=== PATIENT | male | born 1995 | race Caucasian/White ===

== ENCOUNTER 2017-06-20 12:52 | Emergency (ER) | payer BC, MEDICAID ==
--- NOTE | 2017-06-20 14:06 | RADIOLOGY REPORT (SQ) ---
EXAM DESCRIPTION: ANKLE RIGHT COMPLETE COMPLETED DATE/TIME: 06/20/2017 1:54 pm REASON FOR STUDY: pain after trampoline COMPARISON: None. NUMBER OF VIEWS: Three views. TECHNIQUE: AP, lateral, and oblique radiographic images acquired of the right ankle. LIMITATIONS: Lateral film slightly rotated FINDINGS: MINERALIZATION: Normal. BONES: No acute fracture or dislocation. No worrisome bone lesions. JOINTS: Ankle mortise intact. There is a tibiotalar joint effusion SOFT TISSUES: Medial and lateral soft tissue swelling is present. No radiopaque foreign body OTHER: No other significant finding. IMPRESSION: Ankle joint effusion with diffuse soft tissue swelling. No acute displaced fracture. TECHNICAL DOCUMENTATION: JOB ID: [id number] [employer]- All Rights Reserved Reading location - IP/workstation name: [email or web address]
[2017-06-20] MEDS ORDERED: IBUPROFEN 600 MG TABLET PO ONE (14:35)
--- NOTE | 2017-06-20 14:40 | ER Document Report ---
ED Extremity Problem, Lower - General Chief Complaint: Ankle Injury Stated Complaint: RIGHT ANKLE INJURY Time Seen by Provider: 06/20/17 13:57 Mode of Arrival: Ambulatory Information source: Patient Notes: 21-year-old male presents to ED for complaint of pain to the right ankle for week. States he was jumping on trampoline with some younger people and injured his right ankle. He states he has been having trouble walking on this ankle. States been using Flakito wrap and a brace that he had for his knee and elevate and ice the ankle with no relief. He states his been using ibuprofen with no relief. TRAVEL OUTSIDE OF THE [place] IN LAST 30 DAYS: No - HPI Patient complains to provider of: Injury, Pain, Swelling Location: Ankle Occurred: Last week Where: Home, Outdoors Onset/Duration: Gradual, Worse Quality of pain: Achy, Throbbing Severity: Moderate Pain Level: 3 Context: Barefoot Recent injury: Possibly Associated symptoms: Painful ambulation Exacerbated by: Hanging down, Movement, Walking Relieved by: Elevation, Ice, Rest - Related Data Allergies/Adverse Reactions: No Known Allergies Allergy (Unverified 06/20/17 12:53) Past Medical History - General Information source: Patient - Social History Smoking Status: Never Smoker Cigarette use (# per day): No Chew tobacco use (# tins/day): No Smoking Education Provided: No Frequency of alcohol use: None Drug Abuse: None Lives with: Family Family History: Reviewed & Not Pertinent Patient has suicidal ideation: No Patient has homicidal ideation: No - Past Medical History Cardiac Medical History: Reports: None Pulmonary Medical History: Reports: None EENT Medical History: Reports: None Neurological Medical History: Reports: None Endocrine Medical History: Reports: None Renal/ Medical History: Reports: None Malignancy Medical History: Reports None GI Medical History: Reports: None Musculoskeltal Medical History: Reports Hx Musculoskeletal Trauma Skin Medical History: Reports None Psychiatric Medical History: Reports: Hx Depression, Hx Post Traumatic Stress Disorder Traumatic Medical History: Reports: None Infectious Medical History: Reports: None Surgical Hx: Negative Past Surgical History: Reports: None Review of Systems - Review of Systems Constitutional: No symptoms reported EENT: No symptoms reported Cardiovascular: No symptoms reported Respiratory: No symptoms reported Gastrointestinal: No symptoms reported Genitourinary: No symptoms reported Male Genitourinary: No symptoms reported Musculoskeletal: Ankle swelling - Pain and swelling Skin: No symptoms reported Hematologic/Lymphatic: No symptoms reported Neurological/Psychological: No symptoms reported -: Yes All other systems reviewed and negative Physical Exam - Vital signs Vitals: Temp Pulse Resp BP Pulse Ox 98.3 F 70 16 122/78 97 06/20/17 13:10 06/20/17 13:10 06/20/17 13:10 06/20/17 13:10 06/20/17 13:10 Interpretation: Normal - General General appearance: Appears well, Alert - HEENT Head: Normocephalic, Atraumatic Eyes: Normal Pupils: PERRL - Respiratory Respiratory status: No respiratory distress Chest status: Nontender Breath sounds: Normal Chest palpation: Normal - Cardiovascular Rhythm: Regular Heart sounds: Normal auscultation Murmur: No - Abdominal Inspection: Normal Distension: No distension Bowel sounds: Normal Tenderness: Nontender Organomegaly: No organomegaly - Back Back: Normal, Nontender - Extremities General upper extremity: Normal inspection, Nontender, Normal color, Normal ROM , Normal temperature General lower extremity: Normal temperature. No: Troy's sign Hip: Normal, Nontender Thigh: Normal, Nontender Knee: Normal, Nontender Ankle: Tender, Ecchymosis, Edema, Limited ROM - Due to pain, Unable to bear weight - Due to pain Foot: Normal, Nontender - Neurological Neuro grossly intact: Yes Cognition: Normal Orientation: AAOx4 Radha Coma Scale Eye Opening: Spontaneous [place] Coma Scale Verbal: Oriented Radha Coma Scale Motor: Obeys Commands Radha Coma Scale Total: 15 Speech: Normal Motor strength normal: LUE, RUE, LLE, RLE Sensory: Normal - Psychological Associated symptoms: Normal affect, Normal mood - Skin Skin Temperature: Warm Skin Moisture: Dry Skin Color: Normal Course - Re-evaluation Re-evalutation: 06/20/17 16:06 The patient is nontoxic appearing with stable vitals. They are afebrile. Ankle exam shows no deformities with no obvious ligament instability. There is a normal pulse and sensation distally. There is no redness or signs of infection. X-rays show no acute fracture per the radiologist. Patient will be placed in an Flakito wrap for comfort. Crutches will be offered and given if requested. Patient will be instructed to follow-up with not better in 1 week, sooner for increasing pain, fever, redness, numbness, tingling, weakness, any further concerns. Patient will be instructed to rest, ice, elevate their ankle. - Vital Signs Vital signs: Temp Pulse Resp BP Pulse Ox 98.0 F 57 L 16 127/63 H 97 06/20/17 14:51 06/20/17 14:51 06/20/17 13:10 06/20/17 14:51 06/20/17 14:51 - Diagnostic Test Radiology reviewed: Image reviewed, Reports reviewed Procedures - Immobilization Right Ankle Time completed: 14:45 Pre-Proc Neuro Vasc Exam: Normal Immobilizer type: Flakito wrap, Ankle stirrup Performed by: PCT Post-Proc Neuro Vasc Exam: Normal Alignment checked and good: Yes Discharge - Discharge Clinical Impression: Right ankle sprain Qualifiers: Encounter type: initial encounter Involved ligament of ankle: unspecified ligament Qualified Code(s): S93.401A - Sprain of unspecified ligament of right ankle, initial encounter Condition: Stable Disposition: HOME, SELF-CARE Instructions: Family Physicians / Practices Additional Instructions: SPRAINED ANKLE: Your sprained ankle results from stretching or tearing of the ligaments which support the ankle. This usually results from twisting the foot inward and under. The ligaments will require time and protection in order to heal properly. Many ankle sprains are quite disabling, and should be taken seriously. The usual treatment for an ankle sprain is cold packs; protection with tape , splints, or wraps; elevation; and staying off the ankle for at least a day. As the ankle improves, you can walk IF it's not painful to bear weight. Sports are best postponed until healing is complete. More serious sprains usually require strengthening exercises after early healing. Your physician has assessed the seriousness of the ligament injury to your ankle. However, the treatment may change, depending on how your ankle progresses. If further exams were recommended, it is important that you follow through. Call the doctor if your foot becomes numb, painful, or severely swollen. ANKLE STIRRUP SPLINT: You are to use an ankle brace called a stirrup splint. This type of brace allows you to place greater stresses on the ankle without risk of re-injury, and is often used for more severe ankle injuries such as avulsion fractures and ligament ruptures. The splint can be worn over a sock or tape. For proper support, wear the splint with a shoe over it. It's important that the splint fit properly. Adjust the heel tension, if needed. If your splint has air bladders, peel back the bottom of each air bladder, then move the Velcro attachment of the heel strap up or down. Air bladder pressure can be adjusted by pulling up the valve at the top, threading the air tube down into the main bladder, then blowing air into the bladder or squeezing it out. The two sides of the stirrup can be moved forward or back on your ankle by changing the attachment of the main straps. If you are unable to use the ankle comfortably in the splint, return for re -evaluation. FLAKITO WRAP: A compression dressing (flakito wrap) has been placed. This helps hold the area still. It limits swelling and internal bleeding. The wrap should be comfortably snug -- not tight. You should feel a sense of pressure, but not severe pain under the wrap. Unless the physician tells you otherwise, you can adjust the wrap for comfort. If the wrap causes symptoms suggesting it's too tight -- uncomfortable pressure, swelling or discoloration beyond the wrap, numbness, or severe pain - - you must loosen the wrap. If these symptoms don't resolve promptly, return for re-evaluation. USE OF CRUTCHES: The doctor has recommended that you not bear weight at this time. You will need to use crutches. Adjust the crutches so the tops come to about two inches under the armpit while you are standing upright. Use your hands -- not your armpits -- to support your weight. To get into a chair, support yourself with one crutch on the injured side. Hold the chair with the other hand, then lower yourself while putting all your weight on the good leg. Going up stairs is `good leg up, step up, then bring up crutches and bad leg.' Down stairs is `bad leg and crutches down, then bring good leg down.' If you develop numbness or swelling in an arm or hand, you are using the crutches incorrectly. Return if you are having any problems with the crutches. ICE & ELEVATION: Apply ice packs frequently against the painful area. Many different schedules are recommended, such as "20 minutes on, 20 minutes off" or "one hour ice, two hours rest." If you need to work, you may need to go longer between ice treatments. You should plan to have the area ice packed AT LEAST one- fourth of the time. The ice should be applied over the wrap, tape, or splint, or over a layer of cloth -- not directly against the skin. Some ice bags have a built-in cloth and can be put directly on the skin. Your injured part should be elevated as much as possible over the next 48 hours. Try to keep the injury above the level of the heart. Avoid use of the injured area. Elevation and rest will decrease the swelling. USE OF [id number] IBUPROFEN: Ibuprofen (Advil, Nuprin, Medipren, Motrin IB) is a medication for fever and pain control. In addition, it has anti- inflammatory effects which may be beneficial, especially in the treatment of injuries. It's best to take ibuprofen with food. Persons with ulcer disease or allergy to aspirin should notify their physician of this before taking ibuprofen. Ibuprofen can be given every four to six hours, for a total of four doses daily. Age Pain or fever dose Antiinflammatory dose 6-8 yr 200 mg (1 tab) 200 mg (1 tab) 9-11 yr 200 mg (1 tab) 200-400 mg (1-2 tab) 11-14 yr 200-400 mg (1-2 tab) 400 mg (2 tab) 15-adult 400 mg (2 tab) 600 mg (3 tab) FOLLOW-UP CARE: If you have been referred to a physician for follow-up care, call the physician s office for an appointment as you were instructed or within the next two days. If you experience worsening or a significant change in your symptoms, notify the physician immediately or return to the Emergency Department at any time for re-evaluation. Forms: Smoking Cessation Education Referrals: PAULETTE SHANKS, [ACTIVE STAFF] - Follow up as needed
[2017-06-20 14:52] VITALS: BP 127/63
== END 2017-06-20 15:33 | disposition home or self-care (01) ==
LOC: ER 12:52
DX: S93.401A Sprain of unspecified ligament of right ankle, initial encounter (principal); X50.0XXA Overexertion from strenuous movement or load, initial encounter; Y92.007 Garden or yard of unspecified non-institutional (private) residence as the place of occurrence of the external cause
CPT/HCPCS: 99283; 73610; L1902

== ENCOUNTER 2017-08-11 16:19 | Emergency (ER) | payer BC ==
[2017-08-11 16:39] VITALS: BP 134/60
--- NOTE | 2017-08-11 17:49 | ER Document Report ---
ED Psych Disorder / Suicide - General Chief Complaint: Psych Problem Stated Complaint: PSYCH EVAL Time Seen by Provider: 08/11/17 17:27 Mode of Arrival: Ambulatory Information source: Patient Notes: This is a 21-year-old man with a history of depression and PTSD who presents to the emergency room depressed, having cut his arm with scissors and knives last night. He has no history of cutting. He denies access to guns. He is referred to the ER by his counselor at the [facility] for psychiatric evaluation. The patient denies any suicidal ID patients at this time. He does feel safe to go home and he is accompanied by his significant other and she states she is comfortable bringing him home for outpatient evaluation tomorrow. Patient prefers not to stay the night for psychology evaluation in the morning. TRAVEL OUTSIDE OF THE [place] IN LAST 30 DAYS: No - HPI Patient complains to provider of: Self injury Onset: Other Onset was: Gradual - Last night Quality of pain: No pain Severity: None Pain Level: Denies Suicide Risk Factors: Depressed, Male Situational problems related to: denies: Daughter, Legal problems, Lost job, Parent, Recent , Recent divorce, School, Sexual orientation, Significant other, Son, Spouse, Work, Other Suicide Attempt Method: denies: Drowning, Hanging, Motor Vehicle, Overdose, Shooting, Stabbing/Cutting, Train, Other Overdose of: No: Acetominophen, Alcohol, Anticholinergic, Anti-depressants, Benzodiazepine, Salicylate, Tricyclic Antidepressant, Other Injury to: Upper extremity Normal mood: Yes Associated symptoms: Normal affect, Normal mood Similar symptoms previously: No Recently seen / treated by doctor: Yes - Related Data Allergies/Adverse Reactions: No Known Allergies Allergy (Verified 08/11/17 16:22) Past Medical History - General Information source: Patient - Social History Smoking Status: Never Smoker Cigarette use (# per day): No Chew tobacco use (# tins/day): No Frequency of alcohol use: Rare Drug Abuse: None Lives with: Spouse/Significant other Family History: Reviewed & Not Pertinent Patient has suicidal ideation: Yes Patient has homicidal ideation: No - Medical History Medical History: Negative Renal/ Medical History: Denies: Hx Peritoneal Dialysis Musculoskeltal Medical History: Reports Hx Musculoskeletal Trauma Psychiatric Medical History: Reports: Hx Depression, Hx Post Traumatic Stress Disorder Surgical Hx: Negative Review of Systems - Review of Systems Constitutional: denies: Chills, Fever EENT: No symptoms reported Cardiovascular: No symptoms reported Respiratory: No symptoms reported Gastrointestinal: No symptoms reported Genitourinary: No symptoms reported Male Genitourinary: No symptoms reported Musculoskeletal: No symptoms reported Skin: No symptoms reported Hematologic/Lymphatic: No symptoms reported Neurological/Psychological: See HPI Physical Exam - Vital signs Vitals: Temp Pulse Resp BP Pulse Ox 98.8 F 57 L 16 134/60 H 98 08/11/17 16:38 08/11/17 16:38 08/11/17 16:38 08/11/17 16:38 08/11/17 16:38 Notes: Physical exam: GENERAL: 21-year-old man, alert and oriented 3, no acute distress HEAD: Atraumatic, normocephalic. EYES: Pupils equal round and reactive to light, extraocular movements intact, sclera anicteric, conjunctiva are normal. ENT: TMs normal, nares patent, oropharynx clear without exudates. Moist mucous membranes. NECK: Normal range of motion, supple without obvious mass or JVD. LUNGS: Breath sounds clear to auscultation bilaterally and equal. No wheezes rales or rhonchi. HEART: Regular rate and rhythm without murmurs, rubs or gallops. ABDOMEN: Soft, normoactive bowel sounds. No tenderness to palpation. No guarding, no rebound. No masses appreciated. EXTREMITIES: Multiple superficial self-inflicted abrasions to the left upper extremity. None requiring sutures. All appear clean. Distal pulses good. NEUROLOGICAL: Cranial nerves II through XII grossly intact. Normal speech, moving all extremities. PSYCH: Patient denies any suicidal or homicidal ideations at this time. He states he feels safe going home today for evaluation tomorrow. SKIN: Warm, Dry, normal turgor, no rashes or lesions noted. Course - Re-evaluation Re-evalutation: 08/11/17 17:49 Last tetanus: One year ago - Vital Signs Vital signs: Temp Pulse Resp BP Pulse Ox 98.8 F 57 L 16 134/60 H 98 08/11/17 16:38 08/11/17 16:38 08/11/17 16:38 08/11/17 16:38 08/11/17 16:38 Discharge - Discharge Clinical Impression: Mood disorder NOS, Self-inflicted cutting Condition: Stable Disposition: HOME, SELF-CARE Additional Instructions: I would follow-up as planned tomorrow at [facility] with Dr. Velazquez. If you are unable to get in to see the counselor, and/or you feel unsafe or have any thoughts of wanting to hurt yourself or losing control, come right to the emergency room for evaluation. Continue with the Zoloft as prescribed previously.
[2017-08-11] MEDS ORDERED: SERTRALINE HCL 50 MG TABLET PO ONE (17:50)
== END 2017-08-11 18:26 | disposition home or self-care (01) ==
LOC: ER 16:19
DX: F39 Unspecified mood [affective] disorder (principal); S41.119A Laceration without foreign body of unspecified upper arm, initial encounter; X78.1XXA Intentional self-harm by knife, initial encounter
CPT/HCPCS: 36415; 99283

== ENCOUNTER 2017-08-12 11:02 | Emergency (ER) | payer BC ==
[2017-08-12 11:10] VITALS: BP 134/61
--- NOTE | 2017-08-12 11:41 | ER Document Report ---
ED Psych Disorder / Suicide - General Chief Complaint: Psych Problem Stated Complaint: DEPRESSED Time Seen by Provider: 08/12/17 11:23 Notes: 21-year-old male patient seen here yesterday for depression and self-harm. Was subsequently started on some new medication and discharge. Was scheduled to follow-up with psychiatry. Went there today but was unable to be seen so came here. Patient denies any suicidal ideation. States he feels a little bit better. 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 Denies any fever. No tachycardia. No other major symptoms at this time. TRAVEL OUTSIDE OF THE [place] IN LAST 30 DAYS: No - Related Data Allergies/Adverse Reactions: No Known Allergies Allergy (Verified 08/12/17 11:16) Past Medical History - General Information source: Patient - Social History Smoking Status: Never Smoker Chew tobacco use (# tins/day): No Frequency of alcohol use: None Drug Abuse: None Lives with: Spouse/Significant other Family History: Reviewed & Not Pertinent Patient has suicidal ideation: Yes Patient has homicidal ideation: No Renal/ Medical History: Denies: Hx Peritoneal Dialysis Musculoskeltal Medical History: Reports Hx Musculoskeletal Trauma Psychiatric Medical History: Reports: Hx Depression - anxiety cutter/SI, Hx Post Traumatic Stress Disorder Review of Systems - Review of Systems Constitutional: No symptoms reported EENT: No symptoms reported Cardiovascular: No symptoms reported Respiratory: No symptoms reported Gastrointestinal: No symptoms reported Genitourinary: No symptoms reported Male Genitourinary: No symptoms reported Musculoskeletal: No symptoms reported Skin: No symptoms reported Hematologic/Lymphatic: No symptoms reported Neurological/Psychological: No symptoms reported Physical Exam - Vital signs Vitals: Temp Pulse Resp BP Pulse Ox 99.1 F 69 14 134/61 H 98 08/12/17 11:09 08/12/17 11:09 08/12/17 11:09 08/12/17 11:09 08/12/17 11:09 Interpretation: Normal - Psychological Associated symptoms: Normal affect, Normal mood. No: Aggressive, Agitated, Anxious, Depressed, Uncooperative Course - Re-evaluation Re-evalutation: 08/12/17 12:00 At this time patient appears stable. Will have him visit with our mental health provider. Likely patient is stable for continued outpatient treatment at this time. Patient does not meet criteria for IVC. 08/12/17 12:21 At this time mental health provider has seen the patient. Patient is not in any acute distress. Will need to be seen by his providers for any types of duty restrictions etc. I can make recommendations but this is not in an official capacity of the [employer] . he has been advised that if things get worse he can always return. Will DC at this time in stable condition. - Vital Signs Vital signs: Temp Pulse Resp BP Pulse Ox 99.1 F 69 14 134/61 H 98 08/12/17 11:08/12/17 11:09 08/12/17 11:09 08/12/17 11:08/12/17 11:09 Discharge - Discharge Clinical Impression: Depression (emotion) Qualifiers: Depression Type: unspecified Qualified Code(s): F32.9 - Major depressive disorder, single episode, unspecified Disposition: HOME, SELF-CARE Instructions: Depression (OM) Additional Instructions: You have been started on some new medications. It would be advisable to peak with your command with the [employer] to make sure that it would be safe to exert yourself as this is a new medication and there could be some concern initially for overexertion. Please communicate this with your duty command so that they may discuss your status with the supervisory medical coding technician. Referrals: LEIDY NARANJO MD [NO LOCAL MD] - Follow up in 3-5 days
--- NOTE | 2017-08-13 12:07 | PSYCHOLOGICAL NOTE ---
Psych Note - Psych Note Psych Note: Reason for consult: patient's request Consent permissions: Patient's significant other and mother are in room per patient's request 21-year-old male patient seen here yesterday for depression and self-harm. Was subsequently started on some new medication and discharge. Was scheduled to follow-up with psychiatry. Went there today but was unable to be seen so came here. Patient denies any suicidal ideation. States he feels a little bit better. 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 Clinician observed patient sitting calmly with many superficial scratches running up and down his right arm. Patient disclosed that he did that 2 days ago. He denies history of cutting. Patient reports he used to take Zoloft however was switched to the generic which precipitated suicidal ideation in the cutting. Patient confirms he is back on Zoloft and no longer has these thoughts or urges. Patient disclosed he was originally asked to come to [facility] ED for an evaluation by the [employer] however when he came last night it was agreed that he would go to his outpatient mental health provider in the morning. Patient states that he was unable to see his provider today so came back to [facility] ED for further evaluation. Patient disclosed that originally he was sent to the [facility] however it is very far so came here instead. Patient reports that his outpatient mental health therapist is concerned about the stress going to drill causes him. Patient confirms he has been inpatient psychiatric treatment once (at an [facility] hospital) however denies any serious issues since that episode until the change of his medications. Pontine infarct further discussion it became clear patient was requesting an evaluation for "fit for duty." Clinician explained that this cannot be done by a provider not affiliated with the and advised the patient that he needed to either go to the [facility] or possibly the [facility] here in [place]. Patient is alert and orientated to person, place, time and circumstance. Mood is euthymic with congruent affect as evidenced by smiling and openly engaging with clinician. Patient reports episode of self-harm during a change of medications confirms no issues since reverting back to old medication. Patient denies current suicidal and homicidal ideation. Delusions are absent behaviors congruent with an intact reality based presentation i.e. organized and linear thought process. Eye contact is well-maintained. Conversational speech was within normal rate, tone and prosody. Flexion abilities appear to be within the average range. Attention and concentration are good. Insight, judgment, impulse control are good as evidenced by the patient attempting to receive help and continuing to look for assistance even when provider was unavailable today. No medication recommendations at this time V62.89 (Z65.8) other problem related to psychosocial circumstance; difficulty adjusting to Impression\\plan: Patient is cleared from acute psychiatric services. Patient does not meet IVC criteria per [place] GS 122C. Patient had a bout of suicidal ideation with cutting when going through medication change. Patient confirms symptoms have resolved since going back on his new medication. Patient, significant other, and mother all agree patient is not a danger to himself currently. Patient voices concern of upcoming drill. Patient was requesting a fit for duty; this is not something the clinician can provide for the patient. Patient was advised [place] or a mental health provider that is affiliated with the that can perform a fit for duty evaluation. Dr. Rhodes was consulted and the care management this patient; attending physician is agreement with recommendations and disposition.
== END 2017-08-12 12:26 | disposition home or self-care (01) ==
LOC: ER 11:02
DX: F32.9 Major depressive disorder, single episode, unspecified (principal)
CPT/HCPCS: 99284

== ENCOUNTER 2018-08-03 15:44 | Emergency (ER) | payer BC, OTHER ==
--- NOTE | 2018-08-03 16:46 | RADIOLOGY REPORT (SQ) ---
EXAM DESCRIPTION: CT HEAD WITHOUT COMPLETED DATE/TIME: 08/03/2018 4:35 pm REASON FOR STUDY: head trauma COMPARISON: None. TECHNIQUE: Axial images acquired through the brain without intravenous contrast. Images reviewed wi th bone, brain and subdural windows. Additional sagittal and coronal reconstructions were generated. Images stored on PACS. All CT scanners at this facility use dose modulation, iterative reconstruction, and/or weight based d osing when appropriate to reduce radiation dose to as low as reasonably achievable (ALARA). [facility]: Dose Right [facility]: CareDose [facility]: Dose Right [facility]: Teradose 4D [facility]: WHI Solution RADIATION DOSE: CT Rad equipment meets quality standard of care and radiation dose reduction techniq ues were employed. CTDIvol: 53.2 mGy. DLP: 964 mGy-cm. mGy. LIMITATIONS: None. FINDINGS: VENTRICLES: Normal size and contour. CEREBRUM: No masses. No hemorrhage. No midline shift. No evidence for acute infarction. Normal gra y/white matter differentiation. No areas of low density in the white matter. CEREBELLUM: No masses. No hemorrhage. No alteration of density. No evidence for acute infarction. EXTRAAXIAL SPACES: No fluid collections. No masses. ORBITS AND GLOBE: No intra- or extraconal masses. Normal contour of globe without masses. CALVARIUM: No fracture. PARANASAL SINUSES: No fluid or mucosal thickening. SOFT TISSUES: No mass or hematoma. OTHER: No other significant finding. IMPRESSION: NORMAL BRAIN CT WITHOUT CONTRAST. EVIDENCE OF ACUTE STROKE: NO. COMMENT: Quality ID # [id number]: Final reports with documentation of one or more dose reduction techniques (e.g., Automated exposure control, adjustment of the mA and/or kV according to patient size, use of iterative reconstruction technique) TECHNICAL DOCUMENTATION: JOB ID: [id number] [employer]- All Rights Reserved Reading location - IP/workstation name: [email or web address]
[2018-08-03 17:06] LABS: ABSOLUTE EOSINOPHILS # (AUTO) 0.1 10^3/uL (0.0-0.6); ABSOLUTE LYMPHOCYTES (AUTO) 1.6 10^3/uL (0.5-4.7); ABSOLUTE MONOCYTES (AUTO) 0.8 10^3/uL (0.1-1.4); BASOPHILS % (AUTO) 0.6 % (0-2); EOSINOPHILS % (AUTO) 0.8 % (0-6); HEMATOCRIT 44.8 % (37.9-51.0); HEMOGLOBIN 15.3 g/dL (13.5-17.0); LYMPHOCYTES % (AUTO) 24.6 % (13-45); MEAN CORPUSCULAR HEMOGLOBIN 27.8 pg (27.0-33.4); MEAN CORPUSCULAR HGB CONC 34.1 g/dL (32.0-36.0); MEAN CORPUSCULAR VOLUME 81 fl (80-97); MONOCYTES % (AUTO) 12.7 % (3-13); PLATELET COUNT 352 10^3/uL (150-450); RED CELL DISTRIBUTION WIDTH 12.7 % (11.5-14.0); SEGMENTED NEUTROPHILS % (AUTO) 61.3 % (42-78); TOTAL CELLS COUNTED % (AUTO) 100 %; WHITE BLOOD COUNT 6.6 10^3/uL (4.0-10.5)
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
[2018-08-03 17:25] LABS: ALANINE AMINOTRANSFERASE 32 U/L (21-72); ALBUMIN 4.6 g/dL (3.5-5.0); ANION GAP 12 (5-19); ASPARTATE AMINO TRANSFERASE 45 U/L (17-59); BILIRUBIN,DIRECT 0.4 mg/dL (0.0-0.4); BILIRUBIN,TOTAL 1.3 mg/dL (0.2-1.3); BLOOD UREA NITROGEN 8 mg/dL (7-20); CALCIUM 9.5 mg/dL (8.4-10.2); CARBON DIOXIDE 25 mmol/L (22-30); CHLORIDE 104 mmol/L (98-107); GLUCOSE 86 mg/dL (75-110); NEONATAL BILIRUBIN RESULT 0.9 mg/dL (0.1-1.1); POTASSIUM 4.2 mmol/L (3.6-5.0); SODIUM 141.1 mmol/L (137-145); TOTAL PROTEIN 7.4 g/dL (6.3-8.2)
[2018-08-03 17:26] LABS: ALKALINE PHOSPHATASE 56 U/L (38-126)
[2018-08-03 17:27] LABS: ACETAMINOPHEN < 10 ug/mL (10-30); ALCOHOL < 10 mg/dL (NONE DETECTED); SALICYLATE < 1.0 mg/dL (2.0-20.0)
--- NOTE | 2018-08-03 19:46 | EKG REPORT ---
SEVERITY:- NORMAL ECG - SINUS RHYTHM : Confirmed by: Elena Castano MD 03-Aug-2018 19:45:40
[2018-08-04 07:51] LABS: AMORPHOUS SEDIMENT,URINE TRACE /HPF; APPEARANCE,URINE SLIGHTLY-CLOUDY; BILIRUBIN,URINE NEGATIVE (NEGATIVE); COLOR,URINE YELLOW; GLUCOSE, URINE NEGATIVE (NEGATIVE); KETONES,URINE NEGATIVE (NEGATIVE); LEUKOCYTE ESTERASE,URINE NEGATIVE (NEGATIVE); NITRITE,URINE NEGATIVE (NEGATIVE); PROTEIN,URINE NEGATIVE (NEGATIVE); URINE SPECIFIC GRAVITY 1.024; UROBILINOGEN,URINE NEGATIVE mg/dL (<2.0)
[2018-08-04 08:03] LABS: URINE AMPHETAMINES SCREEN NEGATIVE; URINE BARBITURATES SCREEN NEGATIVE; URINE BENZODIAZEPINES SCREEN UNCONFIRMED POSITIVE; URINE COCAINE SCREEN NEGATIVE; URINE MARIJUANA (THC) SCREEN NEGATIVE; URINE METHADONE SCREEN NEGATIVE; URINE PHENCYCLIDINE SCREEN NEGATIVE
--- NOTE | 2018-08-04 10:45 | ER Document Report ---
Doctor's Note Notes: 08/04/18 10:37 Rounds: Chart reviewed and patient interviewed. Patient is being evaluated for anxiety, PTSD, depression, and suicidal ideation. Vital signs are all essentially normal. Lab studies were normal except for positive benzos on drug screen. Patient appears to be medically stable for transfer or discharge. Harini Myrick MD
[2018-08-04 12:33] VITALS: BP 125/67
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
== END 2018-08-04 12:47 | disposition home or self-care (01) ==
LOC: ER 15:44
DX: F41.9 Anxiety disorder, unspecified (principal); F43.10 Post-traumatic stress disorder, unspecified; S00.83XA Contusion of other part of head, initial encounter; W22.09XA Striking against other stationary object, initial encounter
CPT/HCPCS: 36415; 70450; 80053; 80307; 81001; 85025; 93005; 93010; 99284

== ENCOUNTER 2018-09-02 01:12 | Emergency (ER) | payer MEDICAID, OTHER ==
[2018-09-02 02:30] LABS: ABSOLUTE BASOPHILS # (AUTO) 0.1 10^3/uL (0.0-0.2); ABSOLUTE EOSINOPHILS # (AUTO) 0.3 10^3/uL (0.0-0.6); ABSOLUTE LYMPHOCYTES (AUTO) 3.4 10^3/uL (0.5-4.7); ABSOLUTE NEUT (AUTO) 7.4 10^3/uL (1.7-8.2); BASOPHILS % (AUTO) 1.1 % (0-2); EOSINOPHILS % (AUTO) 2.7 % (0-6); HEMATOCRIT 40.4 % (37.9-51.0); HEMOGLOBIN 13.8 g/dL (13.5-17.0); LYMPHOCYTES % (AUTO) 27.5 % (13-45); MEAN CORPUSCULAR HEMOGLOBIN 27.6 pg (27.0-33.4); MEAN CORPUSCULAR HGB CONC 34.1 g/dL (32.0-36.0); MEAN CORPUSCULAR VOLUME 81 fl (80-97); MONOCYTES % (AUTO) 8.2 % (3-13); PLATELET COUNT 379 10^3/uL (150-450); RED CELL DISTRIBUTION WIDTH 12.9 % (11.5-14.0); SEGMENTED NEUTROPHILS % (AUTO) 60.5 % (42-78); TOTAL CELLS COUNTED % (AUTO) 100 %; WHITE BLOOD COUNT 12.2 10^3/uL (4.0-10.5)
[2018-09-02 02:45] LABS: ALANINE AMINOTRANSFERASE 45 U/L (21-72); ALBUMIN 4.2 g/dL (3.5-5.0); ALKALINE PHOSPHATASE 68 U/L (38-126); ANION GAP 9 (5-19); ASPARTATE AMINO TRANSFERASE 26 U/L (17-59); BILIRUBIN,DIRECT 0.2 mg/dL (0.0-0.4); BILIRUBIN,TOTAL 0.5 mg/dL (0.2-1.3); BLOOD UREA NITROGEN 10 mg/dL (7-20); CALCIUM 9.3 mg/dL (8.4-10.2); CARBON DIOXIDE 27 mmol/L (22-30); CHLORIDE 104 mmol/L (98-107); GLUCOSE 84 mg/dL (75-110); POTASSIUM 4.1 mmol/L (3.6-5.0); TOTAL PROTEIN 6.9 g/dL (6.3-8.2)
[2018-09-02 02:49] LABS: ACETAMINOPHEN < 10 ug/mL (10-30); ALCOHOL < 10 mg/dL (NONE DETECTED); SALICYLATE < 1.0 mg/dL (2.0-20.0)
[2018-09-02] MEDS ORDERED: ACETAMINOPHEN 325 MG TABLET PO ONE (03:04)
--- NOTE | 2018-09-02 03:16 | ER Document Report ---
Addendum entered and electronically signed by AKIL MERRITT MD 09/02/18 09:37: Discharge - Discharge Clinical Impression: Suicidal ideation Head trauma Qualifiers: Encounter type: initial encounter Qualified Code(s): S09.90XA - Unspecified injury of head, initial encounter Headache Qualifiers: Headache type: unspecified Headache chronicity pattern: acute headache Intractability: not intractable Qualified Code(s): R51 - Headache Condition: Stable Disposition: HOME, SELF-CARE Additional Instructions: You have been evaluated both medical and behavioral health teams and been deemed appropriate for discharge. You have been started on Effexor 37.5 mg daily; please take as directed. Please follow-up with outpatient mental health provider of your choice in 3 to 5 days for your continued outpatient mental services. You have provided a local resource list of area providers including mobile crisis contact information. You are highly encouraged to engage in both therapy and medication management to better understand your triggers and build positive coping skills. Panic Attack The cause of panic attacks is unknown. Symptoms can include chest pain, shortness of breath, palpitations, sweats, and a sense of smothering or impending doom. In time, the panic attacks can lead to generalized anxiety and phobias. Because the symptoms can mimic heart attack, pulmonary embolism, and other serious diseases, the physician has evaluated you for these conditions. There is no evidence of a serious problem. An acute panic attack usually goes away by itself without treatment. A severe attack can be treated with medicine to calm you. Long-term, antidepressant medicines may help prevent attacks. Counselling can also be very beneficial in dealing with panic attacks. Panic attacks are less likely if you are getting regular exercise, proper diet, and plenty of sleep. It's normal for panic attacks to cause many frightening symptoms. However, you should call or return if your symptoms change significantly or if you are worsening DEPRESSION: Your evaluation reveals that you have mental depression. While symptoms may be vague, they often include disturbance of sleep, fatigue, loss of appetite, and general loss of interest in life. While depression may be a side effect of drugs, or a reaction to a major change in your life, many cases have no known cause. If depression is acute, and related to a major loss in your life, you can expect it to clear completely with time. If you have been depressed a long time, are prone to repeated bouts of depression or low mood, or have been thinking of suicide, get help. Depression can be treated with anti-depressant medication and counselling. Long-term depression will often take a few weeks to clear, even with appropriate medication. Follow-up care is important. SUICIDAL IDEATION: Suicidal ideation is a common medical term for thoughts about suicide, which may be as detailed as a formulated plan, without the suicidal act itself. Although most people who undergo suicidal ideation do not commit suicide, some go on to make suicide attempts. The range of suicidal ideation varies greatly from fleeting to detailed planning, role playing, and unsuccessful attempts. While thoughts about suicide are common, most people do not carry out serious actions to commit suicide. Based upon your evaluation and discussion with you, we do not believe you are currently at risk to act upon your thoughts of suicide. You have agreed to return to the Emergency Department, at any time, if you feel inclined to act upon your suicidal thoughts. FOLLOW-UP CARE: If you have been referred to a physician for follow-up care, call the physicians office for an appointment as you were instructed or within the next two days. If you experience worsening or a significant change in your symptoms, notify the physician immediately or return to the Emergency Department at any time for re-evaluation. . Prescriptions: Venlafaxine HCl ER [Effexor Xr 37.5 mg Cap.sr] 37.5 mg PO DAILY #14 cap.[id number] Referrals: [facility] [Provider Group] - Follow up in 3-5 days [facility] [Outside] - Follow up as needed Addendum entered and electronically signed by ANDRÉS DE JESUS LCSWA 09/02/18 09:32: Discharge - Discharge Clinical Impression: Suicidal ideation Head trauma Qualifiers: Encounter type: initial encounter Qualified Code(s): S09.90XA - Unspecified injury of head, initial encounter Headache Qualifiers: Headache type: unspecified Headache chronicity pattern: acute headache Intractability: not intractable Qualified Code(s): R51 - Headache Condition: Stable Disposition: HOME, SELF-CARE Additional Instructions: You have been evaluated both medical and behavioral health teams and been deemed appropriate for discharge. You have been started on Effexor 37.5 mg daily; please take as directed. Please follow-up with outpatient mental health provider of your choice in 3 to 5 days for your continued outpatient mental services. You have provided a local resource list of area providers including mobile crisis contact information. You are highly encouraged to engage in both therapy and medication management to better understand your triggers and build positive coping skills. Panic Attack The cause of panic attacks is unknown. Symptoms can include chest pain, shortness of breath, palpitations, sweats, and a sense of smothering or impending doom. In time, the panic attacks can lead to generalized anxiety and phobias. Because the symptoms can mimic heart attack, pulmonary embolism, and other serious diseases, the physician has evaluated you for these conditions. There is no evidence of a serious problem. An acute panic attack usually goes away by itself without treatment. A severe attack can be treated with medicine to calm you. Long-term, antidepressan t medicines may help prevent attacks. Counselling can also be very beneficial in dealing with panic attacks. Panic attacks are less likely if you are getting regular exercise, proper diet, and plenty of sleep. It's normal for panic attacks to cause many frightening symptoms. However, you should call or return if your symptoms change significantly or if you are worsening DEPRESSION: Your evaluation reveals that you have mental depression. While symptoms may be vague, they often include disturbance of sleep, fatigue, loss of appetite, and general loss of interest in life. While depression may be a side effect of drugs, or a reaction to a major change in your life, many cases have no known cause. If depression is acute, and related to a major loss in your life, you can expect it to clear completely with time. If you have been depressed a long time, are prone to repeated bouts of depression or low mood, or have been thinking of suicide, get help. Depression can be treated with anti-depressant medication and counselling. Long-term depression will often take a few weeks to clear, even with appropriate medication. Follow-up care is important. SUICIDAL IDEATION: Suicidal ideation is a common medical term for thoughts about suicide, which may be as detailed as a formulated plan, without the suicidal act itself. Although most people who undergo suicidal ideation do not commit suicide, some go on to make suicide attempts. The range of suicidal ideation varies greatly from fleeting to detailed planning, role playing, and unsuccessful attempts. While thoughts about suicide are common, most people do not carry out serious actions to commit suicide. Based upon your evaluation and discussion with you, we do not believe you are currently at risk to act upon your thoughts of suicide. You have agreed to return to the Emergency Department, at any time, if you feel inclined to act upon your suicidal thoughts. FOLLOW-UP CARE: If you have been referred to a physician for follow-up care, call the physicians office for an appointment as you were instructed or within the next two days. If you experience worsening or a significant change in your symptoms, notify the physician immediately or return to the Emergency Department at any time for re-evaluation. . Referrals: [facility] [Provider Group] - Follow up in 3-5 days [facility] [Outside] - Follow up as needed Original Note: ED General - General Chief Complaint: Suicidal Ideation Stated Complaint: PSYCH Time Seen by Provider: 09/02/18 01:45 Notes: Patient is a 22-year-old male with past medical history of PTSD who presents due to suicidal ideation, and episodes of "freaking out". Apparently today the patient's significant other dropped her phone while in [employer], cracking screen. Apparently when she informed him that they were going to need to work extra shifts that they could repair the phone the patient began self-injurious behaviors including hitting his head on the window of the car repeatedly and stabbing his abdomen with a pen. These behaviors resulted in him coming to the emergency department for further assessment. Has a history of similar behaviors in the past several years. Significant other states that when he is on namebrand Zoloft he does not have these behaviors. She states that almost anything seems to trigger these behaviors. Patient has chronic suicidality no new or different today. Denies any acute physical complaints beyond a global, throbbing, aching headache from striking his head repeatedly on the windshield. The patient did not lose consciousness, no vomiting, no weakness, numbness, or confusion. Does not take any form of anticoagulation. TRAVEL OUTSIDE OF THE [place] IN LAST 30 DAYS: No - Related Data Allergies/Adverse Reactions: No Known Allergies Allergy (Verified 08/03/18 15:55) Past Medical History - General Information source: Patient - Social History Smoking Status: Never Smoker Frequency of alcohol use: None Drug Abuse: None Lives with: Spouse/Significant other Family History: Reviewed & Not Pertinent Renal/ Medical History: Denies: Hx Peritoneal Dialysis Musculoskeletal Medical History: Reports Hx Musculoskeletal Trauma Psychiatric Medical History: Reports: Hx Depression - anxiety cutter/SI, Hx Post Traumatic Stress Disorder Review of Systems - Review of Systems Notes: Constitutional: Negative for fever. HENT: Negative for sore throat. Eyes: Negative for visual changes. Cardiovascular: Negative for chest pain. Respiratory: Negative for shortness of breath. Gastrointestinal: Negative for abdominal pain, vomiting or diarrhea. Genitourinary: Negative for dysuria. Musculoskeletal: Negative for back pain. Skin: Negative for rash. Neurological: Negative for headaches, weakness or numbness. 10 point ROS negative except as marked above and in HPI. Physical Exam - Vital signs Vitals: Temp Pulse Resp BP Pulse Ox 98.4 F 79 16 120/58 L 97 09/02/18 01:21 09/02/18 01:21 09/02/18 01:21 09/02/18 01:09/02/18 01:21 Interpretation: Normal Notes: PHYSICAL EXAMINATION: GENERAL: Well-appearing, no acute distress. HEAD: Atraumatic, normocephalic. EYES: Pupils equal round and reactive to light, extraocular movements intact, sclera anicteric, conjunctiva are normal. ENT: nares patent, no oral pharyngeal trauma. No hemotympanum, no Mendoza's sign, no raccoon eyes. NECK: No midline cervical spine tenderness. Patient able to move their head to 45 bilaterally without any discomfort. LUNGS: Breath sounds clear to auscultation bilaterally and equal. No wheezes rales or rhonchi. HEART: Regular rate and rhythm without murmurs. CHEST WALL: No ecchymosis over the chest wall. ABDOMEN: Soft, nontender, normoactive bowel sounds. No guarding, no rebound. No abdominal bruising EXTREMITIES: Normal range of motion, no pitting or edema. No long bone deformities. BACK: No midline spinal tenderness, step-offs, or deformities. NEUROLOGICAL: Face symmetric. Tongue protrudes midline. Extraocular motions intact. Pupils are 2 mm and equally reactive. Normal speech, normal gait. 5 out of 5 strength in both the distal and proximal upper and lower extremities bilaterally. Sensation is grossly intact throughout. Finger to nose testing normal. Pronator drift normal. PSYCH: Flat affect, depressed mood SKIN: Warm, Dry, normal turgor, very superficial scratch type puncture villarreal over the diffuse abdomen Course - Re-evaluation Re-evalutation: 09/02/18 03:13 Patient presents with suicidal ideation, episodes of agitation and self- injurious behavior. Patient did self inflict some bruises to the scalp and posterior occiput. No focal neurologic deficits on exam, no evidence of basilar skull fracture on exam without evidence of hemotympanum, raccoon eyes, or periauricular hematoma. No papilledema. Patient is not on anticoagulation. GCS is 15. No loss of consciousness. No episodes of vomiting. Patient is therefore negative via [place] head CT criteria and CT imaging will not be obtained at this time. Otherwise medically cleared for evaluation and disposition by the behavioral health team in the morning. - Vital Signs Vital signs: Temp Pulse Resp BP Pulse Ox 98.4 F 79 18 132/75 H 100 09/02/18 02:30 09/02/18 02:30 09/02/18 02:30 09/02/18 02:30 09/02/18 02:30 - Laboratory Result Diagrams: 09/02/18 02:15 09/02/18 02:15 Laboratory results interpreted by me: 09/02/18 09/02/18 02:15 02:15 WBC 12.2 H Salicylates < 1.0 L Acetaminophen < 10 L - EKG Interpretation by Me Additional EKG results interpreted by me: 09/02/18 03:14 Sinus rhythm, rate 73, no ST elevations or depressions. QTC 424. Discharge - Discharge Clinical Impression: Suicidal ideation Head trauma Qualifiers: Encounter type: initial encounter Qualified Code(s): S09.90XA - Unspecified injury of head, initial encounter Headache Qualifiers: Headache type: unspecified Headache chronicity pattern: acute headache Intractability: not intractable Qualified Code(s): R51 - Headache Condition: Fair Disposition: PSYCH HOSP/UNIT
[2018-09-02] MEDS ORDERED: VENLAFAXINE HCL 37.5 MG CAP.SR.24H PO ONE (09:37)
--- NOTE | 2018-09-02 10:18 | PSYCHOLOGICAL NOTE ---
Psych Note - Psych Note Date seen by psych provider: 09/02/18 Time seen by psych provider: 08:00 Psych Note: Reason for Consult: Panic attack/ suicidal ideation Consent permissions: Patient's girlfriendIvon ([phone]) Patient is a 22-year-old male with past medical history of PTSD who presents due to suicidal ideation, and episodes of "freaking out". Patient is currently calm with euthymic mood and no psychomotor agitation. Patient discloses that he became upset last night and had a panic attack which caused him to hit his head multiple times. He reports he had "dark thoughts" but denies ever having a plan. Patient reports that when he is on Zoloft he does not have difficulties with suicidal ideation, "freaking out," or compulsive thoughts patterns; however, if it is generic he continues to have difficulties. Patient is unable to afford Zoloft and is willing to try a different medication to address his symptoms. Patient was able to identify support network of both parents and girlfriend. Clinician provided psychoeducation on the importance of receiving both therapy and medication management to better address symptoms and coping skills. Patient was alert and oriented to self, person, place, time and situation. Mood was euthymic with congruent affect. He denied current suicidal and homicidal ideation. Patient reports passive suicidal ideation ie no plans means or intent while in behavioral event. He did not appear to be responding to internal stimuli as evidenced by fair eye contact, answering questions when addressed, staying on topic, carrying on dialogue conversation and being engaged in evaluation. Thought processes were linear and organized. Conversational speech was within normal limits for rate, tone and prosody. Intellectual abilities are estimated to be average. Attention and concentration were good. Insight, judg ment and impulse control are fair. Coordinated with GirlfrienIvon marrero ([phone]), in plan of care and for transportation. 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 medication recommendations per [facility]'s contracted psychiatrist Dr Dulce Maria DOBBINS are as follows Effexor 37.5mg daily Impression/plan: patient is cleared from acute psychiatric services. Patient presented after having what he identifies as a panic attack with passive suicidal ideation i.e. no plans means or intent. Patient has been off his medication and is requesting assistance on getting back on. He identifies not being able to pay for the medication that he had been on previously that worked and is willing to try a different medication. Medication recommendations have been provided. Patient's girlfriend agrees to be part of patient's plan of care i.e. no access to medications weapons since follow through with mental health recommendations. Patient and patient's girlfriend [facility] new concerns arise or symptoms worsen. Patient received psychoeducation on the importance of receiving both therapy and medication management to better address his symptoms and coping skills. Clinician notes there is concern that the patient identifies as having PTSD; however, there does not seem to be a clear traumatic event, as he provides different reasons during different visits. There has been evidence that the patient has difficulties dealing with typical daily stressors and may have a more appropriate diagnosis of adjustment disorder. Patient is recommended to follow-up with his outpatient mental health provider for a reassessment on symptoms and diagnosis. Dr. Rhodes was consulted to care management this patient; attending physicians in agreement with recommendations and disposition.
[2018-09-02 10:22] VITALS: BP 123/55
--- NOTE | 2018-09-03 00:12 | EKG REPORT ---
SEVERITY:- NORMAL ECG - SINUS RHYTHM : Confirmed by: Tania Mustafa 03-Sep-2018 00:11:50
== END 2018-09-02 11:26 | disposition home or self-care (01) ==
LOC: ER 01:12
DX: S09.90XA Unspecified injury of head, initial encounter (principal); R51 Headache; X83.8XXA Intentional self-harm by other specified means, initial encounter
CPT/HCPCS: 93005; 99285; 36415; 80307 ×3; 85025; 80053; 93010; J3490 ×2